=== PATIENT | female | born 1935 ===

== ENCOUNTER 2019-02-03 20:30 | Outpatient (CLI) | payer MEDICARE | END 2019-02-03 20:31 | disposition home or self-care (01) | LOC: SLEEPLAB 20:30 | PROVIDERS: ATTEND Internal Medicine | DX: G47.33 Obstructive sleep apnea (adult) (pediatric) (principal); F32.9 Major depressive disorder, single episode, unspecified; R06.83 Snoring; F41.9 Anxiety disorder, unspecified; G47.61 Periodic limb movement disorder; G47.8 Other sleep disorders | CPT/HCPCS: 95810 ==

== ENCOUNTER 2019-09-18 10:21 | Inpatient (IN) | payer MEDICARE ==
[2019-09-18 11:24] LABS: Hemoglobin 10.9 g/dL (12.0-16.0); Mean Corpuscular HGB CONC 32.1 g/dL (32.0-36.0); Mean Corpuscular Hemoglobin 29.4 pg (27.0-31.0); Mean Corpuscular Volume 91.5 fL (78.0-98.0); Mean Platelet Volume 8.9 fL (7.4-10.4); Platelet Count 235 thou/uL (130-400); RBC Distribution Width 12.2 % (11.5-14.5); Red Blood Cell (RBC) Count 3.69 mill/uL (4.20-5.40); White Blood Cell (WBC) Count 18.8 thou/uL (4.8-10.8)
[2019-09-18 11:34] LABS: ALT (SGPT) 37 U/L (8-55); AST (SGOT) 71 U/L (5-34); Albumin 3.5 g/dL (3.4-4.8); Alkaline Phosphatase 53 U/L (40-110); Anion Gap 18 mmol/L (10-20); BUN (Urea Nitrogen) 43 mg/dL (9.8-20.1); Bilirubin, Total 0.6 mg/dL (0.2-1.2); CK (CPK) 2161 U/L (29-168); Calc. Creatinine Clearance 0 mL/min (70-130); Calcium 9.1 mg/dL (7.8-10.44); Carbon Dioxide 19 mmol/L (23-31); Chloride 107 mmol/L (98-107); Estimated GFR-MDRD 32; Globulin 2.3 g/dL (2.4-3.5); Glucose 121 mg/dL (83-110); Protein, Total 5.8 g/dL (6.0-8.3); Sodium 139 mmol/L (136-145)
--- NOTE | 2019-09-18 11:37 | RAD ---
Radiograph pelvis one view: DATE: 09/18/2019 HISTORY: 84-year-old female with acute traumatic pelvic pain due to fall. FINDINGS: Comminuted left intertrochanteric fracture with somewhat severe varus angulation. No gross disruption of pelvic ring identified. IMPRESSION: Acute, traumatic, significantly angulated and displaced intertrochanteric fracture of the left proxim al femur.
--- NOTE | 2019-09-18 11:38 | RAD ---
PORTABLE CHEST 1 VIEW: DATE: 09/18/2019. TIME: 12:08 PM. HISTORY: Trauma, chest pain. FINDINGS/IMPRESSION: The heart size is normal. The aorta is tortuous. The lungs are expanded without lobar consolidation , pneumothoraces, or pleural effusions. There are degenerative changes in the spine and shoulder susan nts. POS: [facility]
--- NOTE | 2019-09-18 11:39 | RAD ---
TWO VIEWS LEFT HIP: COMPARISON: None. HISTORY: Fall with left hip pain. FINDINGS: Two views of the left hip show a comminuted intratrochanteric fracture of the left femur. No disloca tion is seen. IMPRESSION: Left intratrochanteric femur fracture. POS: [facility]
--- NOTE | 2019-09-18 11:40 | RAD ---
TWO VIEWS LEFT ELBOW: COMPARISON: None. HISTORY: Fall with left elbow pain. FINDINGS: Two views of the left elbow show a mildly comminuted fracture of the olecranon. No obvious dislocati on is seen. Moderate diffuse soft tissue swelling is seen. No obvious fracture of the radial head o r distal humerus is seen. IMPRESSION: Comminuted fracture of the olecranon of the ulna. POS: [facility]
[2019-09-18 11:41] LABS: #Lymphocytes 1.2 thou/uL (1.20-3.40); #Monocytes 1.7 thou/uL (0.11-0.59); #Neutrophils 15.8 thou/uL (1.40-6.50); %Eosinophils 0.1 % (0.0-10.0); %Lymphocytes 6.5 % (21.0-51.0); %Monocytes 9.2 % (0.0-10.0); %Neutrophils 84.2 % (42.0-75.0); Band 6 % (5-11); Lymphocytes 9 % (21-51); MDiff Complete? YES; Monocytes 8 % (0-10); Neutrophil 77 % (42-75); Platelet Morphology Comment Appears Adequate; Polychromasia SLIGHT = 2-3 cells (100X) (0-2/hpf)
--- NOTE | 2019-09-18 11:42 | CT ---
CT BRAIN WITHOUT CONTRAST: HISTORY: Trauma, fall. No loss of consciousness, head injury. FINDINGS: No evidence of acute infarct, hemorrhage, midline shift, or abnormal extraaxial fluid collections is seen. There are changes of cortical atrophy and chronic small-vessel ischemic disease. The ventricu lar size is appropriate and the basilar cisterns are patent. The bony calvarium is intact. The visu alized paranasal sinuses and mastoid air cells are well aerated. IMPRESSION: No CT evidence of acute intracranial process. POS: [facility]
--- NOTE | 2019-09-18 11:43 | CT ---
CT CERVICAL SPINE WITHOUT CONTRAST: HISTORY: Trauma, fall. Neck injury. Head injury. FINDINGS: Multilevel degenerative changes are seen. No acute fracture, subluxation, or facet malalignment is i dentified. No abnormal prevertebral soft tissue swelling is seen. There is scarring in the lung api blair. IMPRESSION: No CT evidence of acute cervical spine fracture or traumatic subluxation. POS: [facility]
[2019-09-18 12:28] LABS: Bacteria/HPF None Seen HPF (None Seen); Bilirubin Negative (Negative); Blood, Urine Negative (Negative); Clarity Clear (Clear); Glucose, Urine (Dipstick) Normal (Negative); Leukocyte Negative Leu/uL (Negative); Nitrite Negative (Negative); Protein, Urine (Dipstick) 30 mg/dL (Neg-Trace); RBC/HPF 0-3 HPF (0-3); Squamous Epithelial None Seen HPF (0-3); Urobilinogen Normal mg/dL (Less than 2); WBC/HPF None Seen HPF (0-3)
[2019-09-18] MEDS ORDERED: Morphine 4 MG/ML VIAL SLOW IVP PRN (12:37)
[2019-09-18] MEDS ORDERED: Dextrose 5% in Water 1,000 ML IV PRN (12:37)
[2019-09-18] MEDS ORDERED: Dextrose 50% Abboject 50 ML SYRINGE SLOW IVP PRN (12:37)
[2019-09-18] MEDS ORDERED: hydrALAZINE 20 MG/ML VIAL SLOW IVP PRN ×2 (12:37)
[2019-09-18] MEDS ORDERED: Morphine 2 MG/ML SYRINGE SLOW IVP PRN (12:37)
[2019-09-18] MEDS ORDERED: HumaLOG 300 UNITS/3 ML VIAL SC PRN (12:37)
[2019-09-18] MEDS ORDERED: Cyclobenzaprine 10 MG TAB PO PRN (12:40)
[2019-09-18 12:43] LABS: Prothrombin Time 12.8 SEC (12.0-14.7)
[2019-09-18] MEDS ORDERED: Acetaminophen 325 MG TAB PO SCH (12:45)
[2019-09-18 12:47] LABS: PTT 27.4 SEC (22.9-36.1)
[2019-09-18 14:02] LABS: Lactic Acid 2.1 mmol/L (0.5-2.2)
[2019-09-18] MEDS: Lactated Ringer's 1,000 ML IV SCH ×2 (14:02→20:40)
[2019-09-18] MEDS ORDERED: CEFAZOLIN 2 GM in Premix Bag 1 BAG IVPB SCH (14:15)
[2019-09-18] MEDS: Acetaminophen 325 MG TAB PO SCH ×2 (14:39→20:35)
[2019-09-18 14:58] VITALS: BMI 21.9
--- NOTE | 2019-09-18 15:15 | HP ---
CONSULTING PHYSICIAN: John White MD. ATTENDING PHYSICIAN: Federico Meyer DO HISTORY OF PRESENT ILLNESS: Ms. Villalpando is an 84-year-old female, who presented to the ED via EMS from home with a history of mechanical fall at home yesterday. The patient reports she was in her kitchen cooking, she tripped on her tripod walker and fell on the floor. The patient did not hit her head or loss of consciousness; however, she could not get up or bear any weight. She lives at home by herself. She could not get up and get help for 23 hours. The patient obviously did not have anything to eat or drink for the full 23 hours until her granddaughter came by and brought her to the emergency room. Upon arrival in the ED, the patient is alert and awake. GCS 15. Vital signs have been stable. The patient looked dry and tried and complained of pain from the left hip and left elbow. REVIEW OF SYSTEMS: Noncontributory except per HPI. PAST MEDICAL HISTORY: None. PAST SURGICAL HISTORY: None. PAST PSYCHIATRIC HISTORY: Depression and is using Wellbutrin everyday. SOCIAL HISTORY: The patient lives at home by herself, using a walker to ambulate around the house. Her granddaughter checks on her everyday. The patient denies smoking. Denies drinking alcohol. Denies drug use. ALLERGIES: NO KNOWN DRUG ALLERGIES. CURRENT MEDICATION: Wellbutrin 75 mg b.i.d. PHYSICAL EXAMINATION: GENERAL: Currently, the patient is lying in bed comfortable, with no acute respiratory distress. HEENT: Atraumatic. No bruising. No tender to palpation. Pupil 3 mm, equal bilaterally, reactive to light. NECK: Trachea midline. No tender to palpation. CHEST: Atraumatic. No bruising. No tender to palpation. LUNGS: Clear bilaterally. HEART: Regular rate and rhythm. ABDOMEN: No bruising. No tender to palpation. No rebound. No guarding. Bowel sounds are active. PELVIS: Stable. EXTREMITIES: Left upper elbow bruising and swelling. Extremely tender to palpation and obvious deformity. Left radial pulse is strong, and the patient complained of tingling and numbness of the left 5 fingers. Capillary refill less than 2 seconds. Right upper extremity neurovascularly intact. Bilateral lower extremities neurovascularly intact. Left hip limited range of motion due to pain. NEUROLOGIC: No focal neurology deficits. DIAGNOSTIC STUDIES: Initial workup; laboratory showed white count 18.8, hemoglobin 10.9, and platelet count 235. Sodium 139, potassium 5, and creatinine is 1.55. CK is 2100. Lactic acid is 3. Glucose 121. Chest x-ray, no pneumothorax or hemothorax. X-ray of pelvis, intertrochanteric fracture of the left proximal femur. Spine CT scan showed no evidence of acute cervical spine fracture. X-ray of the left elbow showed comminuted fracture of olecranon and ulna. ASSESSMENT: 1. Status post mechanical fall with delayed presentation. 2.Closed left elbow fracture. 3. Closed left hip fracture. 4. Acute kidney injury due to rhabdomyolysis and hypovolemia. 5. Rhabdomyolysis. 6. History of depression. PLAN: The patient will be admitted to [place] [id number] for pain control, hydration, for rhabdomyolysis and acute kidney disease. The patient will have nonpharmacological DVT prophylaxis, gastritis prophylaxis, and pulmonary toilet. Orthopedics will take the patient to the OR in 24 to 48 hours after rhabdomyolysis and acute kidney injury improves. We will put her on Wellbutrin for depression treatment, it is the patient's home medications. Dr. Meyer is notified. saw patient right after this dictation Job ID: [id number] [facility]
[2019-09-18] MEDS: Ferrous Sulfate 325 MG TAB PO SCH (17:47)
[2019-09-18] MEDS: traMADol HCl 50 MG TAB PO PRN (17:48)
--- NOTE | 2019-09-18 19:51 | CON ---
DATE OF CONSULTATION: 09/18/2019 REQUESTING PHYSICIAN: Federico Meyer DO CONSULTING PHYSICIAN: Luis Feldman MD REASON FOR CONSULTATION: Left hip 3-part intertrochanteric fracture and left olecranon elbow fracture. BRIEF CLINICAL HISTORY: Kasey is an 84-year-old female, who was brought to [facility] via EMS after she had fallen yesterday morning. The patient was on the floor for greater than 24 hours and she was found down by her daughter. She was unable to communicate or get through on her phone. She tells me that she tripped over her walker and remembers the events before during and after her fall. Plain radiographs in the emergency room demonstrated a left hip intertrochanteric 3-part fracture as well as a left olecranon elbow fracture, both of which were closed. Our service has been consulted for orthopedic management of this problem. PAST MEDICAL HISTORY: Mild depression. PAST SURGICAL HISTORY: Negative. MEDICATIONS: Wellbutrin. ALLERGIES: NO KNOWN DRUG ALLERGIES. SHE DENIES ANY CONTACT ALLERGIES. SOCIAL HISTORY: She denies any ethanol, tobacco or illicit drug abuse. She lives alone. She is independent and self-care. REVIEW OF SYSTEMS: Negative unless otherwise noted. PHYSICAL EXAMINATION: GENERAL: This is an elderly frail-appearing female, in no apparent distress or discomfort. She is alert, appropriate, and responsive with the examiner. HEENT: Head is normocephalic and atraumatic. LUNGS: Clear to auscultation. HEART: Regular rate and rhythm. Occasional ectopy noted. ABDOMEN: Soft. EXTREMITIES: No clubbing, cyanosis or edema. Shortening and external rotation of the left lower extremity is noted, also bruising around the buttock. Her left elbow is also bruised circumferentially consistent with fracture. Tenderness to palpation is elicited. IMAGING STUDIES: Two views of left elbow demonstrate olecranon fracture, comminuted, displaced. Two views and AP pelvis demonstrate the left hip 3-part intertrochanteric fracture. IMPRESSION: 1. Left hip 3-part intertrochanteric fracture. 2. Left displaced closed olecranon fracture. 3. Rhabdomyolysis from being down. 4. Dehydration. PLAN: 1. The patient will be managed and monitored by the Trauma Team and judiciously hydrated. 2. When we have been given the go ahead to proceed with surgery, we will proceed with intertrochanteric hip fracture fixation with short transfemoral nail and an open reduction and internal fixation of the left elbow. The risks, benefits, options, alternatives, and rationale for proceeding with both procedures have been explained in great detail with the patient. She is ready to proceed. All questions were answered. No guarantee of outcome has been stated or implied. 3. Please see orders. Job ID: [id number]
[2019-09-18] MEDS: Famotidine/PF 20 mg/2ml Vial SLOW IVP SCH (20:34)
[2019-09-18] MEDS: Senokot S 8.6-50 MG TAB PO SCH (20:35)
[2019-09-18] MEDS: Gabapentin 100 MG CAP PO SCH (20:35)
[2019-09-18] MEDS: Ascorbic Acid 500 mg Chewable Tablet PO SCH (20:35)
[2019-09-18] MEDS ORDERED: buPROPion 75 MG TAB PO SCH (21:00)
[2019-09-18] MEDS ORDERED: Sodium Bicarbonate 150 MEQ in Dextrose 5% in Water 1,000 ML IV SCH (21:30)
--- NOTE | 2019-09-18 23:56 | PRG ---
DATE OF SERVICE: 09/18/2019 SUBJECTIVE: The patient was admitted earlier today after being found at home on the floor from reportedly falling approximately 24 hours earlier. The patient was admitted showing signs of dehydration, rhabdomyolysis, a left intertrochanteric hip fracture and a displaced left olecranon fracture. Since admission, the patient has been receiving IV fluids for hydration and has had a diet. She is currently n.p.o. after midnight and plans for operative repair of her olecranon fracture and her hip fracture. At the time of my visit, the patient was tolerating her diet. Her pain was controlled and she was making adequate urine. PHYSICAL EXAMINATION: VITAL SIGNS: Stable. The patient is afebrile. GENERAL: The patient is resting comfortably in bed. She is awake, alert, conversant. [place] Coma Scale is 15. HEENT: Unremarkable. LUNGS: Clear to auscultation with good inspiratory and expiratory effort. HEART: Regular rate and rhythm. ABDOMEN: Soft, nontender with active bowel sounds. EXTREMITIES: Neurovascularly intact x4. ASSESSMENT: 1. Status post ground level fall with delayed presentation. 2. Closed left olecranon fracture. 3. Closed left intertrochanteric femur fracture. 4. Rhabdomyolysis secondary from being down. 5. Dehydration secondary to #3. PLAN: Plan will be to continue IV fluid hydration, n.p.o. after midnight, pain control, pulmonary toilet, gastritis and mechanical VTE prophylaxis. We will recheck her labs in the morning. Postoperatively, we will begin physical and occupational therapy and discuss placement at that time. Job ID: [id number]
[2019-09-19] MEDS: Acetaminophen 325 MG TAB PO SCH ×4 (03:14→20:42)
[2019-09-19 05:36] LABS: #Lymphocytes 1.4 thou/uL (1.20-3.40); #Neutrophils 7.2 thou/uL (1.40-6.50); %Basophils 0.3 % (0.0-1.0); %Eosinophils 0.2 % (0.0-10.0); %Monocytes 10.4 % (0.0-10.0); %Neutrophils 75.1 % (42.0-75.0); Hemoglobin 7.7 g/dL (12.0-16.0); Mean Corpuscular HGB CONC 32.8 g/dL (32.0-36.0); Mean Corpuscular Hemoglobin 30.1 pg (27.0-31.0); Mean Corpuscular Volume 91.8 fL (78.0-98.0); Mean Platelet Volume 8.1 fL (7.4-10.4); Phosphorus 2.9 mg/dL (2.3-4.7); Platelet Count 183 thou/uL (130-400); RBC Distribution Width 12.1 % (11.5-14.5); Red Blood Cell (RBC) Count 2.55 mill/uL (4.20-5.40); White Blood Cell (WBC) Count 9.6 thou/uL (4.8-10.8)
[2019-09-19] MEDS: Lactated Ringer's 1,000 ML IV SCH ×3 (05:43→18:11)
[2019-09-19 05:58] LABS: Anion Gap 10 mmol/L (10-20); BUN (Urea Nitrogen) 37 mg/dL (9.8-20.1); CK (CPK) 1166 U/L (29-168); Calc. Creatinine Clearance 34 mL/min (70-130); Carbon Dioxide 29 mmol/L (23-31); Chloride 101 mmol/L (98-107); Estimated GFR-MDRD 45; Glucose 123 mg/dL (83-110); Potassium 3.8 mmol/L (3.5-5.1); Sodium 136 mmol/L (136-145)
[2019-09-19] MEDS ORDERED: Hydrocortisone Sod Succ/PF 100 mg/2 ml Vial IVP SCH (07:00)
[2019-09-19] MEDS: Bupropion 150 MG XL TAB PO SCH (08:00)
[2019-09-19] MEDS: Ascorbic Acid 500 mg Chewable Tablet PO SCH ×2 (08:00→20:42)
[2019-09-19] MEDS: Ferrous Sulfate 325 MG TAB PO SCH ×2 (08:00→16:00)
[2019-09-19] MEDS: Polyethylene Glycol 3350 17 GM Packet PO SCH (08:00)
[2019-09-19] MEDS: Senokot S 8.6-50 MG TAB PO SCH ×2 (08:00→20:42)
[2019-09-19] MEDS: Gabapentin 100 MG CAP PO SCH ×2 (08:00→20:42)
[2019-09-19 09:08] LABS: Hemoglobin 7.4 g/dL (12.0-16.0); Platelet Count 178 thou/uL (130-400)
[2019-09-19] MEDS ORDERED: Fentanyl 100 MCG/2 ML VIAL ONE ×2 (10:17→13:36)
[2019-09-19] MEDS ORDERED: Famotidine/PF 20 mg/2ml Vial ONE (10:18)
[2019-09-19] MEDS ORDERED: Phenylephrine 10 MG/ML VIAL ONE (10:36)
[2019-09-19] MEDS ORDERED: Ondansetron HCl/PF 4 MG/2 ML Vial IVP PRN (10:47)
[2019-09-19] MEDS ORDERED: Promethazine HCl 25 MG/ML VIAL SLOW IVP PRN (10:47)
[2019-09-19] MEDS ORDERED: Promethazine HCl 25 MG/ML VIAL IM PRN (10:47)
[2019-09-19] MEDS ORDERED: Ketorolac Tromethamine 30 MG/ML VIAL ONE (11:14)
[2019-09-19] MEDS ORDERED: PHENYLEPHRINE-NS 100 MCG/ML 10 ML SYRINGE ONE (11:14)
[2019-09-19] MEDS ORDERED: PROPOFOL 200 MG/20 ML VIAL ONE (11:14)
[2019-09-19] MEDS ORDERED: Metoclopramide HCl 10 MG/2 ML VIAL ONE (11:14)
[2019-09-19] MEDS ORDERED: Ondansetron PF 4 MG/2 ML Vial ONE (11:14)
[2019-09-19] MEDS ORDERED: Rocuronium Bromide 10 MG/ML (10ML VIAL) ONE (11:14)
[2019-09-19] MEDS ORDERED: Dexamethasone 20 MG/5 ML VIAL ONE (11:14)
[2019-09-19] MEDS ORDERED: Lidocaine 1% PF 5 ML VIAL ONE (11:14)
[2019-09-19] MEDS ORDERED: Glycopyrrolate 0.2 MG/ML 5 ML SYRINGE ONE (11:14)
[2019-09-19] MEDS ORDERED: CEFAZOLIN 2 GM in Premix Bag 1 BAG IVPB SCH (14:00)
--- NOTE | 2019-09-19 15:28 | RAD ---
INTRAPROCEDURE FLUOROSCOPY: HISTORY: Left hip fracture. EXPOSURE: 45.4 seconds, 5.22 mGy. FINDINGS: Two intraoperative fluoroscopic images demonstrate internal fixation hardware consisting of an intram edullary ganesh and gamma nail transfixing an intratrochanteric fracture. Avulsive component at the les ser trochanter is redemonstrated. IMPRESSION: Intraprocedure fluoroscopy as above. POS: [facility]
--- NOTE | 2019-09-19 15:30 | RAD ---
EXAM: INTRAPROCEDURAL FLUOROSCOPY: 09/19/19 HISTORY: Left elbow fracture. EXPOSURE: 4 seconds, 0.13 mGy. FINDINGS: Two intraprocedural fluoroscopic views demonstrate placement of a K-wire and single screw traversing the proximal ulna. Fracture lucency is identified. IMPRESSION: Intraprocedural fluoroscopy as above. POS: [facility]
[2019-09-19] MEDS: traMADol HCl 50 MG TAB PO PRN (16:02)
--- NOTE | 2019-09-19 16:19 | PRG ---
DATE OF SERVICE: 09/19/2019 SUBJECTIVE: Ms. Villalpando is an 84-year-old female, status post ground level fall with closed left wrist fracture and closed left hip fracture. Rhabdomyolysis improved. Acute kidney injury improved. The patient has been doing good with regard to pain control. She tolerated with her regular diet. Her urine adequate. The patient has a plan to go to the OR with Orthopedic, Dr. Feldman, this morning for fixation of left hip fracture. OBJECTIVE: GENERAL: Currently, the patient lying in bed comfortable, with no acute respiratory distress. VITAL SIGNS: Temperature 98.0, heart rate 64, respiratory rate 16, O2 saturation 95% on room air, and blood pressure 110/66. LUNGS: Clear bilaterally. HEART: Regular rate and rhythm. ABDOMEN: Soft and nondistended. EXTREMITIES: Neurovascularly intact x4. ASSESSMENT: 1. Status post ground level fall, delayed presentation. 2. Left wrist fracture, conservative treatment. 3. Closed left hip fracture, await for surgery. 4. Rhabdomyolysis, improved. 5. Acute kidney injury due to hypovolemia, improved. PLAN: The patient will continue supportive care. Continue pain control. Continue nonpharmacological DVT prophylaxis. The patient had hemoglobin drop from 10.9 to 7.4 this morning due to severe bruising of the left upper extremity, the patient got transfused 1 unit of blood before surgery. Postop, the patient will need to work with Physical Therapy and Occupational Therapy. Anticipate placement in rehabilitation facility. The patient was seen and evaluated with Dr. Meyer on round this morning. Job ID: [id number] [facility]
[2019-09-19] MEDS: Famotidine/PF 20 mg/2ml Vial SLOW IVP SCH (20:42)
[2019-09-19] MEDS: CEFAZOLIN 2 GM in Premix Bag 1 BAG IVPB SCH (20:42)
--- NOTE | 2019-09-19 22:36 | PRG ---
DATE OF SERVICE: 09/19/2019 SUBJECTIVE: The patient remains on the surgical floor. She is postop from open reduction and internal fixation of a left hip fracture and left olecranon fracture. The patient is also being treated for rhabdomyolysis, which is improving. Postoperatively, by report, the patient did have some liquids and reports her pain is controlled. At the time of my visit, the patient was asleep, I did not awaken her. OBJECTIVE: VITAL SIGNS: Stable. She is afebrile. GENERAL: She is making adequate urine. She appears comfortable. RESPIRATIONS: Nonlabored. Her postop dressing is clean, dry, and intact. ASSESSMENT AND PLAN: 1. Status post ground level fall with delayed presentation. 2. Closed left olecranon fracture, status post open reduction and internal fixation. 3. Closed left intertrochanteric femur fracture, status post open reduction and internal fixation. 4. Rhabdomyolysis, improving. 5. Acute kidney injury, secondary to dehydration, improving. PLAN: Continue gentle fluid hydration. Recheck labs in the morning. Begin physical and occupational therapy and begin discussing placement. Job ID: [id number]
[2019-09-20] MEDS: Acetaminophen 325 MG TAB PO SCH ×2 (02:49→08:49)
[2019-09-20] MEDS: Lactated Ringer's 1,000 ML IV SCH (02:50)
[2019-09-20] MEDS: CEFAZOLIN 2 GM in Premix Bag 1 BAG IVPB SCH (03:30)
[2019-09-20 04:54] LABS: #Lymphocytes 0.8 thou/uL (1.20-3.40); #Monocytes 0.7 thou/uL (0.11-0.59); #Neutrophils 7.1 thou/uL (1.40-6.50); %Basophils 0.1 % (0.0-1.0); %Eosinophils 0.2 % (0.0-10.0); %Lymphocytes 9.1 % (21.0-51.0); %Monocytes 8.6 % (0.0-10.0); %Neutrophils 82.1 % (42.0-75.0); Hemoglobin 6.2 g/dL (12.0-16.0); Mean Corpuscular HGB CONC 31.8 g/dL (32.0-36.0); Mean Corpuscular Hemoglobin 30.3 pg (27.0-31.0); Mean Corpuscular Volume 95.1 fL (78.0-98.0); Mean Platelet Volume 8.8 fL (7.4-10.4); Platelet Count 123 thou/uL (130-400); RBC Distribution Width 12.2 % (11.5-14.5); Red Blood Cell (RBC) Count 2.04 mill/uL (4.20-5.40); White Blood Cell (WBC) Count 8.7 thou/uL (4.8-10.8)
[2019-09-20 05:22] LABS: Anion Gap 12 mmol/L (10-20); BUN (Urea Nitrogen) 20 mg/dL (9.8-20.1); Calc. Creatinine Clearance 51 mL/min (70-130); Calcium 7.4 mg/dL (7.8-10.44); Carbon Dioxide 22 mmol/L (23-31); Chloride 106 mmol/L (98-107); Estimated GFR-MDRD 70; Glucose 87 mg/dL (83-110); Magnesium 1.6 mg/dL (1.6-2.6); Potassium 4.2 mmol/L (3.5-5.1); Sodium 136 mmol/L (136-145)
--- NOTE | 2019-09-20 06:20 | OP ---
DATE OF PROCEDURE: 09/19/2019 PROCEDURES PERFORMED: 1. Intramedullary nail fixation of left femur. 2. Open reduction and internal fixation of left olecranon fracture. PREOPERATIVE DIAGNOSES: 1. Displaced left intertrochanteric femur fracture. 2. Displaced left olecranon fracture. POSTOPERATIVE DIAGNOSES: 1. Displaced left intertrochanteric femur fracture. 2. Displaced left olecranon fracture. COMPLICATIONS: None. ESTIMATED BLOOD LOSS: 150 mL. RUBBER MILL OPERATOR: Ney Michel PA-C IMPLANTS: Synthes 12 mm trochanteric nail with helical blade, 7.3 mm screw and tension band wire were utilized for the olecranon. INDICATIONS: Ms. Villalpando is an 84-year-old female, who fell and fractured her left elbow and left proximal femur. She was indicated for the above procedures to restore anatomic alignment and promote healing and prevent complications of prolonged bedrest. Risks have been reviewed in detail. She has elected to proceed with the operation. DESCRIPTION OF PROCEDURE: Ms. Villalpando was identified in the preoperative holding area. Her correct extremity was marked. She was carried to the operating room. She was positioned supine. General anesthesia was induced. A multidisciplinary time-out was performed. The left lower extremity was prepped and draped in sterile fashion. We began the procedure with pulling traction on the limb and evaluating with intraoperative x-ray. Once we had an anatomic reduction, we prepped and draped the left leg. We then made a small incision proximal to the tip of the trochanter. A guidewire was inserted in the trochanter. We overdrilled the guidewire. We then inserted our trochanteric femoral nail. This was a 12 mm nail. It was seated appropriately. We then placed a guidewire in the center position of the femoral head. We overdrilled this and placed our helical blade. Next, we placed a distal Crosslock screw. A sterile dressing was applied. We thoroughly irrigated with copious lavage. We then placed a sterile dressing. At this point, we prepped and draped the left upper extremity. A tourniquet was inflated. We then incised over the olecranon. We worked deeply down to the olecranon fracture. The soft tissues were cleared. We exposed the fracture, which was highly displaced. We reduced the fracture using reduction clamp. We held this with a guidewire. We overdrilled the guidewire and placed a 7.3 mm screw with a washer. At this point, we added a tension band K-wire. This restored the anatomic alignment and held our fracture reduction well. We took final x-ray images. We thoroughly irrigated with copious lavage. We then closed appropriately in layers. We placed a well-padded splint and a posterior slab. The patient was taken to the recovery room at this point in good condition. Job ID: [id number]
--- NOTE | 2019-09-20 06:53 | PDOC.EVN ---
Event Note - Event Note Event Note: Pt transfused ONE unit PRBCs this morning for a Hgb of 6.2 and SBP of 100.
[2019-09-20] MEDS ORDERED: Magnesium 2 GM/50 ML 2 GM in Premix Bag 1 BAG IVPB SCH (07:15)
[2019-09-20] MEDS: Ferrous Sulfate 325 MG TAB PO SCH ×2 (08:42→17:37)
[2019-09-20] MEDS: Acetaminophen 500 MG TAB PO SCH ×3 (08:42→21:13)
[2019-09-20] MEDS: Gabapentin 100 MG CAP PO SCH ×3 (08:42→21:13)
[2019-09-20] MEDS: Bupropion 150 MG XL TAB PO SCH (08:42)
[2019-09-20] MEDS: Senokot S 8.6-50 MG TAB PO SCH ×2 (08:43→21:13)
[2019-09-20] MEDS: Polyethylene Glycol 3350 17 GM Packet PO SCH (08:43)
[2019-09-20] MEDS: Ascorbic Acid 500 mg Chewable Tablet PO SCH ×2 (08:43→21:13)
[2019-09-20] MEDS ORDERED: Gabapentin 300 MG CAP PO SCH (09:00)
--- NOTE | 2019-09-20 11:02 | PRG ---
DATE OF SERVICE: 09/20/2019 SUBJECTIVE: Ms. Villalpando is an 84-year-old female, status post ground level fall with closed left wrist fracture and closed left hip fracture. The patient underwent ORIF of closed left wrist fracture and closed left hip fracture yesterday. The patient tolerated the procedure well. Postop, the patient doing good. Pain is well controlled. She tolerated her regular diet. Her urine adequate. Patient's rhabdomyolysis improved. Acute kidney injury improved. OBJECTIVE: GENERAL: Currently patient lying in bed comfortable with no acute respiratory distress. VITAL SIGNS: Temperature 98.1, heart rate 18, O2 saturation 93% on room air, blood pressure 112/47, heart rate is 66. LUNGS: Clear bilaterally. HEART: Regular rate and rhythm. ABDOMEN: Soft, nondistended. EXTREMITIES: Postop dressing of the left upper extremity clean, dry, intact. Neurovascularly intact. Postop dressing of the left hip is dry and clean. Neurovascularly intact of bilateral lower extremities. NEUROLOGIC: No focal neurology deficits. ASSESSMENT: 1. Status post ground level fall with delayed presentation. 2. Left wrist fracture, status post ORIF of left wrist fracture. 3. Closed left hip fracture, status post fixation. 4. Rhabdomyolysis, improved. 5. Acute kidney injury due to dehydration, improved, resolved. PLAN: Continue supportive care. Continue pain control. Will postpone pharmacological DVT prophylaxis due to blood transfusion today. The patient experienced drop of hemoglobin to 6.2. Her blood pressure is dropping up to systolic of 100. The patient got 1 unit of blood transfused. The patient will be working with physical therapy and occupational therapy today. Anticipate discharge to rehabilitation facility in the next 24 to 48 hours. The patient was seen and evaluated with Dr. Meyer on round this morning. Job ID: [id number]
[2019-09-20] MEDS: traMADol HCl 50 MG TAB PO SCH ×3 (12:01→23:32)
[2019-09-20] MEDS: Famotidine/PF 20 mg/2ml Vial SLOW IVP SCH (21:14)
[2019-09-21] MEDS ORDERED: Ondansetron HCl/PF 8 MG in Sodium Chloride 0.9% 50 ML IVPB SCH (01:30)
[2019-09-21] MEDS: Acetaminophen 500 MG TAB PO SCH ×4 (02:18→20:39)
--- NOTE | 2019-09-21 02:59 | PRG ---
DATE OF SERVICE: 09/21/2019 SUBJECTIVE: The patient remains on the surgical floor. She was admitted status post ground level fall when she sustained a left olecranon fracture and left hip fracture and she underwent ORIF of both of these fractures. She is postop day 1 from that. The patient is tolerating a diet. Her pain is controlled. Her hemoglobin dropped to 6.2 this morning requiring her to get blood products. Unfortunately, this interfered with her working with Physical Therapy today, it does not appear that she was able to. The patient had her Ramesh removed this evening and has voided afterwards. PHYSICAL EXAMINATION: VITAL SIGNS: Stable. The patient is afebrile. GENERAL: The patient is resting comfortably in bed. She is asleep at the time I visit, I did not awaken her for an exam. She appears to be resting comfortable. Her respirations are nonlabored. Her splint and postop dressings are clean, dry, and intact. ASSESSMENT AND PLAN: 1. Status post ground level fall with delayed presentation. 2. Postoperative day 1, status post open reduction and internal fixation of left intertrochanteric femur fracture and open reduction and internal fixation of left olecranon fracture. 3. Rhabdomyolysis, improving. 4. Acute kidney injury, resolved. PLAN: Plan will be to continue supportive care. Begin physical and occupational therapy tomorrow and await placement. The patient will also have her labs checked in the morning. Job ID: [id number]
[2019-09-21 05:22] LABS: #Eosinphils 0.2 thou/uL (0.0-0.7); #Lymphocytes 1.6 thou/uL (1.20-3.40); #Monocytes 0.8 thou/uL (0.11-0.59); #Neutrophils 7.4 thou/uL (1.40-6.50); %Basophils 0.3 % (0.0-1.0); %Eosinophils 1.6 % (0.0-10.0); %Lymphocytes 15.6 % (21.0-51.0); %Monocytes 7.6 % (0.0-10.0); %Neutrophils 74.9 % (42.0-75.0); Hemoglobin 9.1 g/dL (12.0-16.0); Mean Corpuscular HGB CONC 34.2 g/dL (32.0-36.0); Mean Corpuscular Hemoglobin 31.9 pg (27.0-31.0); Mean Corpuscular Volume 93.4 fL (78.0-98.0); Mean Platelet Volume 8.8 fL (7.4-10.4); Platelet Count 162 thou/uL (130-400); RBC Distribution Width 12.6 % (11.5-14.5); Red Blood Cell (RBC) Count 2.84 mill/uL (4.20-5.40); White Blood Cell (WBC) Count 9.9 thou/uL (4.8-10.8)
[2019-09-21] MEDS ORDERED: Ondansetron PF 4 MG/2 ML Vial IVP PRN (05:25)
[2019-09-21] MEDS ORDERED: Ondansetron ODT 4 MG TAB PO PRN (05:25)
[2019-09-21 05:37] LABS: Phosphorus 2.1 mg/dL (2.3-4.7)
[2019-09-21 05:44] LABS: Anion Gap 9 mmol/L (10-20); BUN (Urea Nitrogen) 23 mg/dL (9.8-20.1); CK (CPK) 425 U/L (29-168); Calc. Creatinine Clearance 46 mL/min (70-130); Calcium 8.1 mg/dL (7.8-10.44); Carbon Dioxide 28 mmol/L (23-31); Chloride 107 mmol/L (98-107); Estimated GFR-MDRD 63; Glucose 99 mg/dL (83-110); Magnesium 2.3 mg/dL (1.6-2.6); Potassium 4.2 mmol/L (3.5-5.1); Sodium 140 mmol/L (136-145)
[2019-09-21] MEDS: traMADol HCl 50 MG TAB PO SCH ×3 (05:46→17:18)
[2019-09-21] MEDS ORDERED: Ondansetron ODT 4 MG TAB PO SCH (06:00)
[2019-09-21] MEDS ORDERED: Sodium Phosphate 15 MMOL in Sodium Chloride 0.9% 250 ML 250 ML IVPB SCH (07:00)
[2019-09-21] MEDS: Bupropion 150 MG XL TAB PO SCH (08:33)
[2019-09-21] MEDS: Gabapentin 100 MG CAP PO SCH ×3 (08:33→20:39)
[2019-09-21] MEDS: Senokot S 8.6-50 MG TAB PO SCH ×2 (08:33→20:39)
[2019-09-21] MEDS: Ferrous Sulfate 325 MG TAB PO SCH ×2 (08:33→17:18)
[2019-09-21] MEDS: Polyethylene Glycol 3350 17 GM Packet PO SCH (08:34)
[2019-09-21] MEDS: Ascorbic Acid 500 mg Chewable Tablet PO SCH ×2 (08:34→20:39)
--- NOTE | 2019-09-21 14:34 | PRG ---
DATE OF SERVICE: 09/21/2019 SUBJECTIVE: Ms. Villalpando is an 84-year-old female, status post ground level fall. She sustained left wrist fracture and left hip fracture. She underwent ORIF of left wrist fracture and left hip fracture. Postop day #2, the patient reports pain was well controlled. She is able to tolerate with her regular diet. Her vital signs have been stable. Her urine is adequate. OBJECTIVE: GENERAL: Currently, the patient is lying in bed, comfortable, with no acute respiratory distress. VITAL SIGNS: Temperature is 97.4, heart rate 58, respiratory rate 14, O2 saturation 93% on room air, and blood pressure 123/66. LUNGS: Clear bilaterally. HEART: Regular rate and rhythm. ABDOMEN: Soft, nondistended. EXTREMITIES: Left upper extremity is clean, dry, intact. Left finger neurovascularly intact. Lower extremities, neurovascularly intact x2., NEUROLOGIC: No focal neurology deficits. ASSESSMENT: 1. Status post ground level fall. 2. Left wrist fracture, status post open reduction and internal fixation. 3. Left hip fracture, status post fixation. 4. Rhabdomyolysis, resolved. 5. Acute kidney injury, resolved. PLAN: Continue supportive care. Continue pain control. Continue DVT prophylaxis. The patient anticipated placement in rehabilitation facility. Job ID: [id number]
[2019-09-21] MEDS: Enoxaparin Sodium 40 MG/0.4 ML SYRINGE SC SCH (20:38)
[2019-09-21] MEDS: Famotidine/PF 20 mg/2ml Vial SLOW IVP SCH (20:38)
--- NOTE | 2019-09-22 00:32 | PRG ---
DATE OF SERVICE: 09/21/2019 SUBJECTIVE: The patient remains on the surgical floor. She is postop day 2 from an open reduction and internal fixation of a left olecranon fracture and left hip fracture. She has begun working with physical and occupational therapy. She is tolerating a diet. Her pain is controlled. PHYSICAL EXAMINATION: VITAL SIGNS: Stable. The patient is afebrile. GENERAL: The patient is resting comfortably in bed. She is asleep at the time of my visit. She did wake up briefly and told me that she was not having any pain. RESPIRATIONS: Nonlabored. Clear to auscultation bilaterally. HEART: Regular rate and rhythm. EXTREMITIES: Neurovascularly intact x4. Postop dressing and splints are clean, dry, and intact. ASSESSMENT: 1. Status post ground level fall with delayed presentation. 2. Postop day 2 status post open reduction and internal fixation of left intertrochanteric femur fracture and open reduction and internal fixation of left olecranon fracture. 3. Rhabdomyolysis, improving. 4. Acute kidney injury, resolved. PLAN: To continue supportive care. Encourage physical and occupational therapy and await placement decision. Per report, the patient's family is requesting that she be discharged to rehab facility in [place], [place] and the Case Management team is working on this. The patient will likely be with us until at least Monday. Job ID: [id number]
[2019-09-22] MEDS: traMADol HCl 50 MG TAB PO SCH ×5 (00:41→23:33)
[2019-09-22] MEDS: Acetaminophen 500 MG TAB PO SCH ×4 (02:20→21:44)
[2019-09-22 06:02] LABS: Phosphorus 2.6 mg/dL (2.3-4.7)
[2019-09-22] MEDS: Polyethylene Glycol 3350 17 GM Packet PO SCH (08:41)
[2019-09-22] MEDS: Gabapentin 100 MG CAP PO SCH ×3 (08:42→21:44)
[2019-09-22] MEDS: Bupropion 150 MG XL TAB PO SCH (08:42)
[2019-09-22] MEDS: Ascorbic Acid 500 mg Chewable Tablet PO SCH ×2 (08:43→21:44)
[2019-09-22] MEDS: Ferrous Sulfate 325 MG TAB PO SCH ×2 (08:43→18:21)
[2019-09-22] MEDS: Senokot S 8.6-50 MG TAB PO SCH ×2 (08:44→21:44)
--- NOTE | 2019-09-22 15:09 | PRG ---
DATE OF SERVICE: 09/22/2019 SUBJECTIVE: Ms. Villalpando remained in surgical floor. The patient reports pain is well controlled. She is able to tolerate her regular diet. Her vital signs have been stable. Her urine is adequate, however, urine frequency is usual due to she has overreactive bladder, that has been her baseline. The patient has not had bowel yet. OBJECTIVE: GENERAL: Currently the patient is lying in bed comfortable with no acute respiratory distress. VITAL SIGNS: Temperature 98.2, heart rate 60, respiratory rate 18, O2 saturation 95% on room air, blood pressure 126/65. LUNGS: Clear bilaterally. HEART: Regular rate and rhythm. ABDOMINAL: Soft. Nondistended. EXTREMITIES: Neurovascularly intact x4. NEUROLOGIC: No focal neurology deficits. ASSESSMENT: 1. Status post ground level fall. 2. Left wrist fracture, status post ORIF of left wrist fracture. 3. Left hip fracture, status post fixation. 4. Rhabdomyolysis, resolved. 5. Acute kidney injury, resolved. 6. History of overactive bladder. PLAN: Continue supportive care. Continue pain control. Continue DVT prophylaxis. Encouraged working with Physical Therapy and Occupational Therapy. Anticipate placement in a rehabilitation facility in the next 1 or 2 hours today. Job ID: [id number]
[2019-09-22] MEDS: Famotidine/PF 20 mg/2ml Vial SLOW IVP SCH (21:44)
[2019-09-22] MEDS: Enoxaparin Sodium 40 MG/0.4 ML SYRINGE SC SCH (21:44)
[2019-09-22] MEDS ORDERED: Temazepam 15 MG CAP PO PRN (22:36)
--- NOTE | 2019-09-22 23:38 | PRG ---
DATE OF SERVICE: 09/22/2019 SUBJECTIVE: The patient remains on the surgical floor. She is postop day 3, status post open reduction and internal fixation of a left olecranon fracture and left femoral neck fracture. She is tolerating a diet. Her pain is controlled. She has been working with Physical and Occupational Therapy and she is currently awaiting placement in the [place], [place] area. PHYSICAL EXAMINATION: VITAL SIGNS: Stable. The patient is afebrile. GENERAL: The patient is resting comfortably in bed. She states that she was having trouble sleeping last night and requested something tonight. She reports that she has taken something in the past but cannot remember, but recalls that it was for her anxiety and to help her sleep. Otherwise, she has no complaints. RESPIRATIONS: Nonlabored. Clear to auscultation bilaterally. HEART: Regular rate and rhythm. ABDOMEN: Soft, nontender with active bowel sounds. EXTREMITIES: Neurovascularly intact x4. ASSESSMENT: 1. Status post ground level fall with delayed presentation. 2. Postop day 2 status post open reduction and internal fixation of left olecranon fracture and left intertrochanteric femur fracture. 3. Rhabdomyolysis, resolved. 4. Acute kidney injury, resolved. PLAN: Plan will be to continue supportive care. We will add a sleep aid to her medications. Encourage physical and occupational therapy and await placement determination. Job ID: [id number]
[2019-09-23] MEDS: Acetaminophen 500 MG TAB PO SCH ×4 (03:42→20:07)
[2019-09-23] MEDS: traMADol HCl 50 MG TAB PO SCH ×3 (05:42→18:27)
[2019-09-23] MEDS: traMADol HCl 50 MG TAB PO PRN ×2 (05:43→18:30)
[2019-09-23] MEDS ORDERED: Bisacodyl 10 MG SUPP PR SCH (07:30)
[2019-09-23] MEDS: Polyethylene Glycol 3350 17 GM Packet PO SCH (08:23)
[2019-09-23] MEDS: Ferrous Sulfate 325 MG TAB PO SCH ×2 (08:24→18:31)
[2019-09-23] MEDS: Senokot S 8.6-50 MG TAB PO SCH ×2 (08:25→20:06)
[2019-09-23] MEDS: Ascorbic Acid 500 mg Chewable Tablet PO SCH ×2 (08:25→20:07)
[2019-09-23] MEDS: Bupropion 150 MG XL TAB PO SCH (08:25)
[2019-09-23] MEDS: Gabapentin 100 MG CAP PO SCH ×3 (08:25→20:07)
--- NOTE | 2019-09-23 19:11 | PRG ---
DATE OF SERVICE: SUBJECTIVE: Ms. Villalpando remained in surgical floor. Patient is status post ground level fall with left wrist fracture and left hip fracture, status post fixation. Patient reports pain is well controlled. She is able to tolerate with her regular diet. Urine is adequate. She had four bowel this morning. Her vital signs have been stable. OBJECTIVE: GENERAL: Currently, patient is lying in bed comfortable with no acute respiratory distress. VITAL SIGNS: Temperature 98, heart rate 54, respiratory rate 16, O2 saturation 95% on room air, and blood pressure 132/68. LUNGS: Clear bilaterally. HEART: Regular rate and rhythm. ABDOMEN: Soft and nondistended. EXTREMITIES: Neurovascularly intact x4. Postop dressing clean, dry, intact. NEUROLOGY: No focal neurology deficits. ASSESSMENT: 1. Status post ground level fall. 2. Left wrist fracture, status post open reduction internal fixation of left wrist fracture. 3. Left hip fracture, status post fixation. 4. Rhabdomyolysis, resolved. 5. Acute kidney injury, resolved. 6. History of reactive bladder. Stable. PLAN: Continue supportive care. Continue pain control. Continue DVT prophylaxis. Encourage working with Physical Therapy and Occupational Therapy. Pending placement in [facility]. Patient was seen and evaluated with Dr. Meyer on round this morning. Job ID: [id number]
[2019-09-23] MEDS: Famotidine/PF 20 mg/2ml Vial SLOW IVP SCH (20:07)
[2019-09-23] MEDS: Enoxaparin Sodium 40 MG/0.4 ML SYRINGE SC SCH (20:07)
[2019-09-24] MEDS: traMADol HCl 50 MG TAB PO SCH ×3 (00:06→12:00)
--- NOTE | 2019-09-24 01:36 | PRG ---
DATE OF SERVICE: 09/24/2019 SUBJECTIVE: The patient is currently on the surgical floor. She is postop day #4 status post open reduction and internal fixation of a left olecranon fracture and left femoral neck fracture. She is currently awaiting placement approval and transportation to [facility]. Otherwise, she has continued to work with Physical and Occupational Therapy. Her pain is controlled. She is tolerating a diet and her bowel function has returned. PHYSICAL EXAMINATION: VITAL SIGNS: Stable. The patient is afebrile. GENERAL: The patient is resting comfortably in bed. She is asleep at the time of my visit. I did not awaken her for exam. She appeared to be comfortable. LUNGS: Her respirations were nonlabored. EXTREMITIES: Her splint and dressings were clean, dry, and intact. ASSESSMENT: 1. Status post ground level fall with delayed presentation. 2. Postoperative day #3, status post open reduction and internal fixation of left olecranon and left intertrochanteric femur fracture. 3. Rhabdomyolysis, resolved. 4. Acute kidney injury, resolved. PLAN: Plan will be to continue supportive care. Encourage physical and occupational therapy and await final placement decision. Job ID: [id number]
[2019-09-24] MEDS: Acetaminophen 500 MG TAB PO SCH ×3 (03:05→14:26)
[2019-09-24] MEDS: Ferrous Sulfate 325 MG TAB PO SCH ×2 (08:25→17:06)
[2019-09-24] MEDS: Bupropion 150 MG XL TAB PO SCH (08:25)
[2019-09-24] MEDS: Gabapentin 100 MG CAP PO SCH ×2 (08:25→14:25)
[2019-09-24] MEDS: Ascorbic Acid 500 mg Chewable Tablet PO SCH (08:26)
[2019-09-24] MEDS: Senokot S 8.6-50 MG TAB PO SCH (08:26)
[2019-09-24] MEDS: Polyethylene Glycol 3350 17 GM Packet PO SCH (08:27)
--- NOTE | 2019-09-24 09:28 | PRG ---
DATE OF SERVICE: 09/24/2019 SUBJECTIVE: Kasey is postop day 5 from a left elbow open reduction and internal fixation and a left hip trochanteric nail fixation. She has been very slow to progress, and I believe there has been some discussion about where she would like to convalesce after her acute care stay. The patient would prefer to be here locally, but I believe her son wants her to come to [place], and there has been some difficulty arranging for transfer down there. OBJECTIVE: VITAL SIGNS: Temperature 97.7, pulse 57, respiratory rate 16, and blood pressure 118/56. GENERAL: She is alert, responsive, and appropriate with examiner. EXTREMITIES: Her incision of the left hip is clean. No strikethrough. Left elbow splint is intact. No strikethrough. LABORATORY DATA: Hemoglobin and hematocrit 9.1 and 26.5 from September 20. IMPRESSION: An 84-year-old female, postoperative day 5, left elbow open reduction and internal fixation for olecranon fracture and left hip trochanteric nail fixation for intertrochanteric hip fracture, but with slow mobility. PLAN: 1. Consider repeating radiographs of the left hip, if she continues to have problems getting up and bearing weight. 2. I had long discussion with the patient with the nurse present that she would prefer to be placed locally. I have no problem with this, being able to follow on the patient closely, should she develop any problems. Job ID: [id number]
[2019-09-24 15:23] VITALS: BP 102/57; TEMP 97.7
--- NOTE | 2019-09-25 05:27 | DIS ---
DATE OF ADMISSION: 09/18/2019 DATE OF DISCHARGE: 09/24/2019 ADMISSION DIAGNOSES: Mechanical fall with a 24-hour downtime, left intertrochanteric femur fracture, left olecranon fracture, rhabdomyolysis, and acute kidney injury. DISCHARGE DIAGNOSES: Mechanical fall with a 24-hour downtime, left intertrochanteric femur fracture, left olecranon fracture, rhabdomyolysis, and acute kidney injury. CONSULTING PHYSICIAN: Dr. Feldman of Orthopedic Surgery. PROCEDURES: The patient went to the OR on September 19, 2019, and had an IM nail of the left intertrochanteric femur fracture and ORIF of the left olecranon fracture. HOSPITAL COURSE: The patient is an 84-year-old female, who presented to the emergency department after a mechanical fall. She was on the floor for about 24 hours. Subsequently, she was found to have a left intertrochanteric femur fracture, left olecranon fracture, rhabdomyolysis, and acute kidney injury. She went to the OR the next day with Dr. Feldman and received fixations of her intertrochanteric femur fracture and her olecranon fracture. The patient received fluid resuscitation, and subsequently, her rhabdomyolysis and acute kidney injury resolved. She worked with Physical and Occupational Therapy and was ultimately discharged to a rehab facility. At the time of discharge, her pain is well controlled, she was tolerating regular diet, she was working with Physical and Occupational Therapy, and she was voiding without difficulty. DISCHARGE DISPOSITION: Acute rehab. DISCHARGE CONDITION: Satisfactory. PHYSICAL EXAMINATION: VITAL SIGNS: Temperature 97.7, pulse 57, respirations 16, oxygen saturation 98% on room air, and blood pressure 118/56. GENERAL: Well-appearing, elderly female, sitting up in bed with no signs of acute distress. PULMONARY: Equal chest rise and fall. Clear breath sounds bilaterally. No signs of acute respiratory distress. CARDIAC: Regular rate and rhythm. GASTROINTESTINAL: Abdomen is soft, nontender, nondistended. EXTREMITIES: 2+ pulses in all extremities. Gross motor and sensation are intact. No significant swelling noted. NEUROLOGIC: GCS is 15. DISCHARGE INSTRUCTIONS: The patient was discharged to a rehab facility. She is 50% weightbearing on the left upper extremity, weightbearing as tolerated to the left hip. She has a regular diet. She will have PT, OT, and wound care. She will have IS and a walker as well. MEDICATIONS: 1. Tylenol. 2. Vitamin C. 3. Wellbutrin. 4. Flexeril. 5. Lovenox. 6. Ferrous sulfate. 7. Gabapentin. 8. MiraLAX. 9. Senokot-S. 10. Tramadol. FOLLOWUP APPOINTMENTS: The patient is to follow up with Dr. Feldman in 14 days. No need to follow up with Dr. Meyer [facility]. This is a summary of the patient's hospitalization. For full details, please see her medical record in its entirety. The patient was evaluated by Dr. Meyer and myself on the day of discharge. Job ID: [id number]
--- NOTE | 2019-09-25 06:09 | PQF ---
ANA LUISA BRAVO GARY PA-C [id number] [facility] A [id number] CLINICAL DOCUMENTATION CLARIFICATION FORM: POST DISCHARGE Addendum to original discharge summary date: ____ Late entry note date: __ DATE: 09/25/19 ATTN: Sudhir Dunaway Please exercise your independent, professional judgment in responding to the clarification form. Clinical indicators are provided on the bottom of this form for your review Can you please further clarify the specificity of Rhabdomyolysis? Please check appropriate box(s): [ ] Traumatic Rhabdomyolysis [X ] Non- traumatic Rhabdomyolysis [ ] Other diagnosis please specify [ ] Unable to determine In addition, please specify: In addition, please specify: Present on Admission (POA): [ X ] Yes [ ] No [ ] Unable to determine For continuity of documentation, please document condition throughout progress notes and discharge summary. Thank You. CLINICAL INDICATORS - SIGNS / SYMPTOMS / LABS H and P pg.2-status post fall with delayed presentation H and P pg.2 Rhabdomyolysis H and P pg.2- admitted for pain control, hydration for rhabdomyolysis and CINDI Consult pg.2- Rhabdomyolysis from being down PN 09/17 pg.1- Rhabdomyolysis 2/2 from being down Labs Creatine kinase: [id number] 09/2081=[id number] RISK FACTORS 84 years old- H and P pg.1 S/p Fall- H and P pg.1 CINDI- H and P pg.2 Left Olecranon fracture- PN pg.1 Left hip fracture- PN pg.1 Hypovolemia- H and P pg.2 TREATMENTS: IV Fluids- MAR ORIF- OP Report pg.1 Elbow X ray 09/17 Hip X ray 09/17 Morphine sulfate 2gm IV- JUL (This form is maintained as a part of the permanent medical record) 2014 [email or web address] All Rights Reserved [email or web address]
== END 2019-09-24 17:07 | DRG 480 ==
LOC: ERS 10:21 → SURG A 13:57
PROVIDERS: ADMIT Surgery; ATTEND Surgery
PROC: 0QH736Z Insertion of Intramedullary Internal Fixation Device into Left Upper Femur, Percutaneous Approach (ICD-10-PCS; principal; 2019-09-19)
PROC: 0PSL04Z Reposition Left Ulna with Internal Fixation Device, Open Approach (ICD-10-PCS; 2019-09-19)
PROC: 30233N1 Transfusion of Nonautologous Red Blood Cells into Peripheral Vein, Percutaneous Approach (ICD-10-PCS; 2019-09-19)
DX: S52.022A Displaced fracture of olecranon process without intraarticular extension of left ulna, initial encounter for closed fracture (principal); S72.142A Displaced intertrochanteric fracture of left femur, initial encounter for closed fracture; N17.9 Acute kidney failure, unspecified; F32.0 Major depressive disorder, single episode, mild; M62.82 Rhabdomyolysis; W01.0XXA Fall on same level from slipping, tripping and stumbling without subsequent striking against object, initial encounter; E86.1 Hypovolemia; Y93.G3 Activity, cooking and baking; Y92.010 Kitchen of single-family (private) house as the place of occurrence of the external cause; Z79.899 Other long term (current) drug therapy
CPT/HCPCS: 29105; 36415; 36416; 36430; 51702; 70450; 71045; 72125; 72170; 76000; 80048; 80053; 81003; 81015; 82533; 82550; 83605; 83735; 84100; 85025; 85610; 85730; 86850; 86900; 86901; 93005; C1713; C1769; G0390; J0690; J1100; J1650; J1720; J1885; J2001; J2270; J2370; J2405; J2704; J2765; J3010; J3475; J7050; J7070; P9016; S0028

== ENCOUNTER 2021-01-02 13:48 | Emergency (ER) | payer MEDICARE ==
[~2021-01-02 13:48] MED LIST: Iopamidol-370 76% 500 ML 1 ML ONE
[2021-01-02] MEDS ORDERED: Ondansetron PF 4 MG/2 ML Vial ONE (14:40)
[2021-01-02 15:08] LABS: Hemoglobin 13.8 g/dL (12.0-16.0); Mean Corpuscular HGB CONC 32.6 g/dL (32.0-36.0); Mean Corpuscular Hemoglobin 29.8 pg (27.0-31.0); Mean Corpuscular Volume 91.5 fL (78.0-98.0); Mean Platelet Volume 8.6 fL (7.4-10.4); Platelet Count 216 thou/uL (130-400); RBC Distribution Width 12.8 % (11.5-14.5); Red Blood Cell (RBC) Count 4.61 mill/uL (4.20-5.40); White Blood Cell (WBC) Count 16.8 thou/uL (4.8-10.8)
[2021-01-02 15:26] LABS: Band 5 % (5-11); Lymphocytes 3 % (21-51); MDiff Complete? YES; Monocytes 5 % (0-10); Neutrophil 84 % (42-75); Platelet Morphology Comment Appears Adequate; RBC Morphology Normal; Reactive Lymphocytes 3 % (0-10)
[2021-01-02 15:28] LABS: ALT (SGPT) 80 U/L (8-55); AST (SGOT) 54 U/L (5-34); Albumin 3.9 g/dL (3.4-4.8); Alkaline Phosphatase 304 U/L (40-110); Anion Gap 13 mmol/L (10-20); BUN (Urea Nitrogen) 15 mg/dL (9.8-20.1); Bilirubin, Total 0.4 mg/dL (0.2-1.2); Calc. Creatinine Clearance 0 mL/min (70-130); Calcium 9.1 mg/dL (7.8-10.44); Carbon Dioxide 24 mmol/L (23-31); Chloride 102 mmol/L (98-107); Globulin 3.1 g/dL (2.4-3.5); Glucose 114 mg/dL (83-110); Lipase 10 U/L (8-78); Potassium 4.4 mmol/L (3.5-5.1); Sodium 135 mmol/L (136-145)
[2021-01-02 17:39] LABS: Bacteria/HPF None Seen HPF (None Seen); Bilirubin Negative (Negative); Blood, Urine Negative (Negative); Clarity Clear (Clear); Glucose, Urine (Dipstick) Normal (Negative); Ketone, Urine 40 mg/dL (Negative); Leukocyte 250 Leu/uL (Negative); Nitrite Negative (Negative); Protein, Urine (Dipstick) 10 mg/dL (Neg-Trace); Specific Gravity, Urine 1.022 (1.002-1.036); Squamous Epithelial 0-3 HPF (0-3); Urobilinogen Normal mg/dL (Less than 2); pH, Urine 6.5 (5.0-9.0)
== END 2021-01-02 21:44 ==
LOC: ERS 13:48
DX: R11.2 Nausea with vomiting, unspecified (principal); E78.5 Hyperlipidemia, unspecified; M19.90 Unspecified osteoarthritis, unspecified site
CPT/HCPCS: 36415; 36416; 71045; 74177; 76705; 80053; 81003; 81015; 83690; 83880; 84484; 85025; 87040; 87086; 93005; 96374; J2405; Q9967